=== PATIENT | female | born 1940 | race Two or more races ===

== ENCOUNTER 2025-03-08 17:33 | Emergency (ER) | payer OTHER ==
[~2025-03-08] VITALS: Ht 167.6 cm; Wt 59.1 kg
--- NOTE | 2025-03-08 18:33 | ED.PDOC ---
Psychiatric HPI Comments 85 year old female presents to ER with complaints of anxiety x 4 days. Patient with PMH significant for diabetes, hyperlipidemia and frequent UTI's is present with her stating she's been experiencing anxiety symptoms of "claustrophobia" with associated intermittent episodes of disorientation and intermittent nausea x 4 days. States she's had 2 ER visits since onset of symptoms and diagnosed with anxiety and a UTI. Notes shes been taking Ciproflo xacin x 2 days along with Ativan PRN without any relief of symptoms. Patient currently complains of 7/10 right lower back pain, denying any other pain and presents to ER alert and oriented x4, in no apparent distress with blood sugar 318 on arrival and BP 175/68 with remainder of vitals stable. Denies fever, body aches, chills, night sweats, chest pain, shortness of breath, palpitations, headache, dizziness, hallucinations, vomiting, recent falls, abdominal/pelvic pain, flank pain, changes in urination or any further symptoms/complaints Chief Complaint: Anxiety Time Seen by MD: 18:10 Primary Care Provider: GRACE Reviewed Notes: Nurses Notes, Medications, Allergies Information Source: Patient Mode of Arrival: EMS Past Medical History PAST MEDICAL HISTORY: Cancer (Left sided breast cancer - 1999), DM, High Lipids, UTI'S Surgical History (Other): Right ankle surgery- January 05 Family History Family History: Unknown Social History Smoker: Non-Smoker Alcohol: Denies ETOH Use Drugs: Denies Drug Use Lives In: Home Constitutional: denies: chills, diaphoresis, fatigue, fever, malaise, sweats, weakness, others EENTM: denies: blurred vision, double vision, ear bleeding, ear discharge, ear drainage, ear pain, ear ringing, eye pain, eye redness, hearing loss, mouth pain, mouth swelling, nasal discharge, nose bleeding, nose congestion, nose pain, photophobia, tearing, throat pain, throat swelling, voice changes, others Respiratory: denies: cough, hemoptysis, orthopnea, SOB at rest, shortness of breath, SOB with excertion, stridor, wheezing, others Cardiovascular: denies: chest pain, dizzy spells, diaphoresis, Dyspnea on e xertion, edema, irregular heart beat, left arm pain, lightheadedness, palpitations, PND, syncope, others Gastrointestinal: denies: abdomen distended, abdominal pain, blood streaked bowels, constipated, diarrhea, dysphagia, difficulty swallowing, hematemesis, melena, nausea, poor appetite, poor fluid intake, rectal bleeding, rectal pain, vomiting, others Genitourinary: reports: others (As stated in HPI) Neurological: reports: others (As stated in HPI) Musculoskeletal: denies: back pain, gout, joint pain, joint swelling, muscle pain, muscle stiffness, neck pain, others Integumetry: denies: bruises, change in color, change in hair/nails, dryness, laceration, lesions, lumps, rash, wounds, others Allergic/Immunocompromised: denies: Difficulty Healing, Frequent Infections, Hives, Itching, others Hematologic/Lymphatic: denies: anemia, blood clots, easy bleeding, easy bruising, swollen glands, others Endocrine: denies: excessive hunger, excessive sweating, excessive thirst, excessive urination, flushing, intolerance to cold, intolerance to heat, unexplained weight gain, unexplained weight loss, others Psychiatric: reports: others (As stated in HPI) Physical Exam General Appearance: No Apparent Distress, Normal HEENT: PERRL/EOMI Neck: Full Range of Motion, Non-Tender, Normal Respiratory: Chest Non-Tender, Lungs Clear, No Accessory Muscle Use, No Respiratory Distress, Normal Breath Sounds Cardiovascular: No Murmur, No Gallop, Regular Rate/Rhythm Breast Exam: Deferred Gastrointestinal: NOT DONE Genitalia: Deferred Pelvic: Deferred Rectal: Deferred Extremities: Normal capillary refill, Normal range of motion Musculoskeletal : Extremity Location: Back (TTP to right flank noted, no CVA tenderness noted bilaterally) Neurologic: Alert, counterintelligence agent II-XII nml as Tested, No Motor Deficits, Normal Affect, Normal Mood, No Sensory Deficits Cerebellar Function: Normal Reflexes: Normal Skin: Dry, Normal Color, Warm Peripheral Pulses: 2+ carotid (R), 2+ carotid (L), 2+ Radial (R), 2+ Radial (L), 2+ Brachial (R), 2+ Brachial (L) Lymphatic: No Adenopathy EKG EKG : Pulse Rate (adult): 85 Cardiac Rhythm: NSR (SR) Was a procedure done? Was a procedure done?: No Sedation Sedation?: No Psych Differential Dx Intoxication Differential Dx: Hallucinations, CVA, Dehydration Other Differentail Dx sepsis X-Ray, Labs, Meds, VS Vital Signs Date Time Temp Pulse Resp B/P (MAP) Pulse Ox O2 Delivery O2 Flow Rate FiO2 03/08/25 23:11 98.2 64 18 127/42 (70) 100 98.2 03/08/25 22:58 185/58 03/08/25 22:58 185/58 03/08/25 22:44 Room Air* 0 21 03/08/25 22:13 193/64 03/08/25 20:52 98.9 64 16 180/70 (106) 97 98.9 03/08/25 19:27 85 03/08/25 19:24 72 03/08/25 17:35 98.1 71 14 175/68 98 98.1 Lab Test 03/08/25 20:00 03/08/25 19:09 03/08/25 18:14 Range/Units Lactic Acid Level 1.8 0.4-2.0 mmol/L White Blood Count 8.5 4.4-10.8 10^3/uL Red Blood Count 4.41 4.0-5.20 10^6/uL Hemoglobin 13.1 12.2-16.2 g/dL Hematocrit 38.0 36.0-46.0 % Mean Corpuscular Volume 86.0 80.0-100.0 fL Mean Corpuscular Hemoglobin 29.6 28.0-32.0 pg Mean Corpuscular Hemoglobin Concent 34.4 32.0-36.0 g/dL Red Cell Distribution Width 14.0 11.8-14.3 % Platelet Count 368 140-450 10^3/uL Mean Platelet Volume 7.4 6.9-10.8 fL Neutrophils (%) (Auto) 58.8 37.0-80.0 % Lymphocytes (%) (Auto) 25.7 10.0-50.0 % Monocytes (%) (Auto) 12.5 H 0.0-12.0 % Eosinophils (%) (Auto) 1.7 0.0-7.0 % Basophils (%) (Auto) 1.3 0.0-2.0 % Neutrophils # (Auto) 5.0 1.6-8.6 10 ^3/uL Lymphocytes # (Auto) 2.2 0.4-5.4 10 ^3/uL Monocytes # (Auto) 1.1 0-1.3 10 ^3/uL Eosinophils # (Auto) 0.1 0-0.8 10 ^3/uL Basophils # (Auto) 0.1 0-0.2 10 ^3/uL Nucleated Red Blood Cells 0.3 % Sodium Level 133 L 136-145 mmol/L Potassium Level 3.7 3.5-5.1 mmol/L Chloride Level 99 98-107 mmol/L Carbon Dioxide Level 24 20-31 mmol/L Anion Gap 10 5-15 Blood Urea Nitrogen 16 9-23 mg/dL Creatinine 1.15 H 0.550-1.02 mg/dL Glomerular Filtration Rate Calc 47 >90 mL/min BUN/Creatinine Ratio 13.9 10.0-20.0 Serum Glucose 312 H 74-106 mg/dL Calcium Level 9.5 8.7-10.4 mg/dL Total Bilirubin 0.9 0.2-1.0 mg/dL Aspartate Amino Transferase (AST) 17 13-40 U/L Alanine Aminotransferase (ALT) 14 7-40 U/L Alkaline Phosphatase 91 46-116 U/L Ammonia < 10 L 11-32 umol/L Total Protein 7.2 5.7-8.2 g/dL Albumin 4.4 3.2-4.8 g/dL Lipase 359 H 12-53 U/L Urine Color Yellow Yellow Urine Clarity Clear Clear Urine pH 5.5 5.0-9.0 Urine Specific [place] 1.024 1.001-1.035 Urine Protein Trace H Negative Urine Ketones Trace Negative Urine Blood Trace H Negative /uL Urine Nitrite 2+ H Negative Urine Bilirubin Negative Negative Urine Urobilinogen Normal Negative mg/dL Urine Leukocyte Esterase Negative Negative /uL Urine RBC 2 0 - 4 /hpf Urine Microscopic WBC 4 0-5 /HPF Urine Squamous Epithelial Cells Few <5 /hpf Urine Bacteria Many H None Seen /hpf Urine Mucus Few None Seen Urine Glucose 4+ H Normal mg/dL Current Medications Medications (Trade) Dose Ordered Sig/Ryan Route Start Time Stop Time Status Last Admin Sodium Chloride 1,000 ml @ 1,000 mls/hr Q1H ONCE IV 03/08/25 19:00 03/08/25 19:59 DC 03/08/25 19:12 Acetaminophen/ Hydrocodone Bitart ([place] 5/325MG Tab) 1 tab ONCE ONCE PO 03/08/25 19:15 03/08/25 19:16 DC 03/08/25 19:28 Ceftriaxone Sodium 50 ml @ 100 mls/hr ONCE ONCE IV 03/08/25 20:45 03/08/25 21:14 DC 03/08/25 21:02 Clonidine HCl (Catapres Tablet) 0.1 mg ONCE ONCE PO 03/08/25 22:15 03/08/25 22:16 DC 03/08/25 22:13 Hydralazine HCl (Apresoline Injection) 10 mg ONCE ONCE IV 03/08/25 23:00 03/08/25 23:01 DC 03/08/25 22:58 PATIENT: SAIGE ENGLAND GACCT: [id number] UNIT: [id number] : 1940 LOC: ER ROOM / BED: / AGE / SEX: 85 / F ADM STATUS: REG ER SERVICE 32 ORDERING PHYSICIAN: JUAN RAMON OLIVAREZ PROCEDURE(s): HWOCT - HEAD WITHOUT CONTRAST REASON: ALOC ORDER NUMBER(s): [id number], ACCESSION NUMBER(s): [id number] EXAM: CT HEAD WITHOUT CONTRAST INDICATION: ALOC TECHNIQUE: CT images of the head were obtained without administration of IV contrast. CT scans at this facility use dose modulation, iterative reconstruction, and/or weight based dosing when appropriate to reduce radiation dose to as low as reasonably achievable. COMPARISON: None FINDINGS: PARENCHYMA: No acute hemorrhage. There is no mass effect, midline shift, or herniation. There is preservation of the grubbs white differentiation. Moderate scattered hypoattenuation along the periventricular, centrum semiovale, and deep white matter tracts, which are nonspecific however statistically most likely represent chronic microvascular ischemic change. sequelae lacunar infarction versus Virchow giovana space measuring 8 mm in the left inferior basal ganglia VENTRICLES: No hydrocephalus. EXTRA-AXIAL SPACES: No extra-axial fluid collections. OTHER: The bony structures are intact. Visualized portions of the paranasal sinuses and mastoid air cells are clear. IMPRESSION: 1. No CT evidence of an acute intracranial abnormality. ATED BY: MICHAEL DIETZ MD DICTATED DATE/TIME: 03/08/251911 SIGNED BY: MICHAEL DIETZ MD SIGNED DATE/TIME: 03/08/251911 CC: PATIENT: SAIGE ENGLAND GACCT: [id number] UNIT: [id number] : 1940 LOC: ER ROOM / BED: / AGE / SEX: 85 / F ADM STATUS: REG ER SERVICE 13 ORDERING PHYSICIAN: JUAN RAMON OLIVAREZ PROCEDURE(s): CXR1 - CHEST XRAY 1 VIEW REASON: shortness of breath ORDER NUMBER(s): [id number], ACCESSION NUMBER(s): [id number] EXAM: XY CHEST XRAY 1 VIEW HISTORY: shortness of breath TECHNIQUE: 1 view of the chest COMPARISON: None FINDINGS/IMPRESSION: LUNGS: No pleural effusion, consolidation, or pneumothorax MEDIASTINUM: Unremarkable BONES: No acute osseous abnormality OTHER: Surgical clips along the left axilla ATED BY: MICHAEL DIETZ MD DICTATED DATE/TIME: 03/08/251918 SIGNED BY: MICHAEL DIETZ MD SIGNED DATE/TIME: 03/08/251918 CC: PATIENT: SAIGE ENGLAND GACCT: [id number] UNIT: [id number] : 1940 LOC: ER ROOM / BED: / AGE / SEX: 85 / F ADM STATUS: REG ER SERVICE 52 ORDERING PHYSICIAN: JUAN RAMON OLIVAREZ PROCEDURE(s): ABPL - CT AB PEL WO CON-NO ORAL OR IV REASON: right flank pain ORDER NUMBER(s): [id number], ACCESSION NUMBER(s): [id number] COMPUTERIZED TOMOGRAPHY ABDOMEN AND PELVIS WITHOUT CONTRAST REASON FOR EXAM: right flank pain COMPARISON: None TECHNIQUE: Spiral scans were acquired from the diaphragm to the symphysis pubis without intravenous contrast administration. 2-D coronal and sagittal reformatted images were provided. Radiation optimization: All CT scans at this facility use at least one of these dose optimization techniques: Automated exposure control mA and/or kV adjustment per patient size (includes targeted exams where dose is matched to clinical indication) or iterative reconstruction. RADIATION DOSE: CTDI: 9.73 mGy DLP: 540.37 mGy-cm FINDINGS: There is minimal dependent atelectasis in bilateral lower lobes of the lungs. There is no pleural effusion. There is no pericardial effusion. There are coronary artery calcifications. There is a small hiatal hernia. The spleen is not enlarged. The liver is normal in size and contour. Evaluation of the abdominal organs is suboptimal in the absence of intravenous contrast. There are numerous tiny calcified gallstones along the dependent surface of the gallbladder. There is no pericholecystic edema to suggest acute cholecystitis. Evaluation is degraded by streak artifact from the patient's arms. There may be subtle inflammatory change about the head of the pancreas. The adrenal glands are normal. The kidneys are similar in size. There is no hydronephrosis of either kidney. No renal, ureteral, or bladder calculus is identified. The urinary bladder is grossly unremarkable. The uterus and ovaries are within normal limits for age. There is no abdominal aortic aneurysm. No pathologic lymphadenopathy is identified by size criteria. The appendix is normal. There is no pathologic distention of the small bowel. The colonic stool burden is small. No free fluid is identified in the abdomen or pelvis. No acute osseous abnormality is identified. There is chronic appearing compression deformity of the superior endplate of L1. There is severe disc height loss with vacuum phenomenon throughout the lumbar spine. IMPRESSION: Evaluation of the abdominal organs is suboptimal in the absence of intravenous contrast and with the patient's arms causing streak artifact. There may be subtle inflammatory change about the head of the pancreas. Correlate clinically and with serum lipase for possible acute pancreatitis. No renal, ureteral, or bladder calculus. No hydronephrosis of either kidney. Normal appendix Coronary artery disease and atherosclerosis. Small hiatal hernia. ATED BY: LAMONTE RIDER MD DICTATED DATE/TIME: 03/08/252041 SIGNED BY: LAMONTE RIDER MD SIGNED DATE/TIME: 03/08/252041 CC: CBC reviewed without any significant abnormalities CMP reviewed - sodium 133, creatinine 1.15, serum glucose 312 Lipase reviewed -359 Ammonia level reviewed - unremarkable Lactic acid reviewed- normal Urinalysis reviewed- urine nitrites 2+, urine blood trace Urine culture ordered Blood cultures ordered EKG reviewed CT head w/o contrast reviewed Chest x-ray reviewed CT abdomen/pelvis w/o contrast reviewed Hep-Lock IV ordered NS 1 L IV ordered Rocephin 1 g IV ordered Clonidine .1 mg p.o. ordered Hydralazine 10 mg IV ordered Patient resting comfortably at bedside, in no distress [facility] contacted for admission for complicated UTI with delirium and acute pancreatitis, spoke with Dr. Salcedo who states he will arrange transfer, [facility] authorization number [id number] Patient and patients verbalized understanding and agreeable with current p minh of care Images Reviewed?: Images reviewed and evaluated by me Time of 1ST Reevaluation: 18:52 Reevaluation 1ST: N/A Patient Education/Counseling: Diagnosis, Treatment, Prognosis, Need For Follow Up Family Education/Counseling: Diagnosis, Treatment, Prognosis, Need For Follow Up Departure 1 Departure Time of Disposition: 20:32 Impression: Primary Impression: Complicated UTI (urinary tract infection) Additional Impressions: Acute delirium Hyperglycemia Acute pancreatitis Qualified Codes: K85.90 - Acute pancreatitis without necrosis or infection, unspecified Disposition: 02 SHORT TERM HOSPITAL Condition: Stable Critical Care Note Critical Care Time?: No Stability Stability form required: No Heart Score Heart Score: Heart Score Response (Comments) Value History N/A 0 EKG N/A 0 Age N/A 0 Risk Factors N/A 0 Troponin N/A 0 Total 0 JUAN RAMON OLIVAREZ Mar 08, 2025 18:33
[2025-03-08] MEDS: SODIUM CHLORIDE 0.9% 1,000 ML IV ONE (19:12)
--- NOTE | 2025-03-08 19:14 | DVH ---
EXAM: CT HEAD WITHOUT CONTRAST INDICATION: ALOC TECHNIQUE: CT images of the head were obtained without administration of IV contrast. CT scans at [facility] facility use dose modulation, iterative reconstruction, and/or weight based dosing when appropriate to reduce radiation dose to as low as reasonably achievable. COMPARISON: None FINDINGS: PARENCHYMA: No acute hemorrhage. There is no mass effect, midline shift, or herniation. There is pres ervation of the grubbs white differentiation. Moderate scattered hypoattenuation along the periventricu lar, centrum semiovale, and deep white matter tracts, which are nonspecific however statistically mos t likely represent chronic microvascular ischemic change. sequelae lacunar infarction versus Virchow giovana space measuring 8 mm in the left inferior basal ganglia VENTRICLES: No hydrocephalus. EXTRA-AXIAL SPACES: No extra-axial fluid collections. OTHER: The bony structures are intact. Visualized portions of the paranasal sinuses and mastoid air cells are clear. IMPRESSION: 1. No CT evidence of an acute intracranial abnormality.
--- NOTE | 2025-03-08 19:21 | DVH ---
EXAM: XY CHEST XRAY 1 VIEW HISTORY: shortness of breath TECHNIQUE: 1 view of the chest COMPARISON: None FINDINGS/IMPRESSION: LUNGS: No pleural effusion, consolidation, or pneumothorax MEDIASTINUM: Unremarkable BONES: No acute osseous abnormality OTHER: Surgical clips along the left axilla
[2025-03-08] MEDS: HYDROcodone-ACET 5/325MG TAB PO ONE (19:28)
[2025-03-08 19:50] LABS: Hematocrit 38.0 % (36.0-46.0); Hemoglobin 13.1 g/dL (12.2-16.2); Mean Corpuscular Hemoglobin 29.6 pg (28.0-32.0); Mean Corpuscular Volume 86.0 fL (80.0-100.0); Nucleated Red Blood Cells % 0.3 %
[2025-03-08 20:15] LABS: Alanine Aminotransferase 14 U/L (7-40); Albumin 4.4 g/dL (3.2-4.8); Alkaline Phosphatase 91 U/L (46-116); Anion Gap 10 (5-15); BUN/Creatinine Ratio 13.9 (10.0-20.0); Bilirubin, Total 0.9 mg/dL (0.2-1.0); Blood Urea Nitrogen 16 mg/dL (9-23); Calcium 9.5 mg/dL (8.7-10.4); Carbon Dioxide 24 mmol/L (20-31); Chloride 99 mmol/L (98-107); Potassium 3.7 mmol/L (3.5-5.1); Total Protein 7.2 g/dL (5.7-8.2)
[2025-03-08 20:17] LABS: Glucose 312 mg/dL (74-106); Sodium 133 mmol/L (136-145)
[2025-03-08 20:29] LABS: Urine Protein, UAD TRACE (Negative)
--- NOTE | 2025-03-08 20:44 | DVH ---
COMPUTERIZED TOMOGRAPHY ABDOMEN AND PELVIS WITHOUT CONTRAST REASON FOR EXAM: right flank pain COMPARISON: None TECHNIQUE: Spiral scans were acquired from the diaphragm to the symphysis pubis without intravenous c ontrast administration. 2-D coronal and sagittal reformatted images were provided. Radiation optimiza tion: All CT scans at this facility use at least one of these dose optimization techniques: Automated exposure control mA and/or kV adjustment per patient size (includes targeted exams where dose is mat ched to clinical indication) or iterative reconstruction. RADIATION DOSE: CTDI: 9.73 mGy DLP: 540.37 mGy-cm FINDINGS: There is minimal dependent atelectasis in bilateral lower lobes of the lungs. There is no pleural ef fusion. There is no pericardial effusion. There are coronary artery calcifications. There is a small hiatal hernia. The spleen is not enlarged. The liver is normal in size and contour. Evaluation of the abdominal org ans is suboptimal in the absence of intravenous contrast. There are numerous tiny calcified gallstone s along the dependent surface of the gallbladder. There is no pericholecystic edema to suggest acute cholecystitis. Evaluation is degraded by streak artifact from the patient's arms. There may be subtl e inflammatory change about the head of the pancreas. The adrenal glands are normal. The kidneys are similar in size. There is no hydronephrosis of either kidney. No renal, ureteral, or bladder calculu s is identified. The urinary bladder is grossly unremarkable. The uterus and ovaries are within norm al limits for age. There is no abdominal aortic aneurysm. No pathologic lymphadenopathy is identified by size criteria. The appendix is normal. There is no pathologic distention of the small bowel. The colonic stool burden is small. No free fluid is identified in the abdomen or pelvis. No acute osseous abnormality is identified. There is chronic appearing compression deformity of the superior endplate of L1. There is severe disc height loss with vacuum phenomenon throughout the lumbar spine. IMPRESSION: Evaluation of the abdominal organs is suboptimal in the absence of intravenous contrast and with the patient's arms causing streak artifact. There may be subtle inflammatory change about the head of the pancreas. Correlate clinically and wit h serum lipase for possible acute pancreatitis. No renal, ureteral, or bladder calculus. No hydronephrosis of either kidney. Normal appendix Coronary artery disease and atherosclerosis. Small hiatal hernia.
[2025-03-08] MEDS: hydrALAZINE HCL 20 MG/ML VL IV ONE (22:58)
[2025-03-08 23:11] VITALS: BP 127/42; PULSE 64; RESP 18; TEMP 98.2; O2SAT 100
--- NOTE | 2025-03-09 12:20 | ECG ---
[facility] Test Date: 2025-03-08 Test Time: 19:24:40 Pat Name: SAIGE ENGLAND Department: ED Room: Gender: F Resource Economist: : 1940 Requested By: JUAN RAMON OLIVAREZ Order Number: [id number] Reading MD: Measurements Intervals [place] Rate: 72 P: 45 HI: 66 QRS: 0 QRSD: 108 T: 55 QT: 428 QTc: 469 Interpretive Statements Sinus rhythm Short HI interval Probable left ventricular hypertrophy Artifact in lead(s) aVR,V2 Please click the below link to view image of tracing.
== END 2025-03-08 23:42 | disposition short-term general hospital (02) ==
LOC: ER 17:33 → EDBD 17:33 → ER 23:42
DX: N39.0 Urinary tract infection, site not specified (principal); E78.5 Hyperlipidemia, unspecified; F41.9 Anxiety disorder, unspecified; E11.65 Type 2 diabetes mellitus with hyperglycemia; Z85.3 Personal history of malignant neoplasm of breast; Z98.890 Other specified postprocedural states
CPT/HCPCS: 36415; 70450; 71045; 74176; 80053; 81001; 82140; 83605; 83690; 85025; 87040; 87086; 93005; 96361; 96365; 96375; 99285; J0360; J0696; J7030; 87088; 87186